=== PATIENT | female | born 2000 | race Two or more races ===

== ENCOUNTER 2020-05-02 22:26 | Emergency (ER) | payer OTHER ==
[~2020-05-02] VITALS: Ht 170.2 cm; Wt 59.0 kg
[2020-05-02] MEDS ORDERED: SUPER B-50 COM1 EACH (22:43)
[2020-05-03] MEDS ORDERED: AZITHROMYCIN250 MG PO (04:23)
[2020-05-03] MEDS ORDERED: ACETAMINOPHEN650 M2 PO (04:23)
== END 2020-05-03 05:42 | disposition home or self-care (01) ==
LOC: EMR PED 22:26 → ER 22:36 → EMR PED 22:36 → ER 05-03 05:42
DX: A90 Dengue fever [classical dengue] (principal); B96.0 Mycoplasma pneumoniae [M. pneumoniae] as the cause of diseases classified elsewhere; Z20.822 Contact with and (suspected) exposure to COVID-19

== ENCOUNTER 2020-05-06 18:43 | Emergency (ER) | payer OTHER ==
[~2020-05-06] VITALS: Ht 170.2 cm; Wt 61.2 kg
[~2020-05-06 18:43] MED LIST: ACETAMINOPHEN650 M2 PO; AZITHROMYCIN250 MG PO; SUPER B-50 COM1 EACH
[2020-05-07] MEDS ORDERED: PEPCID AC20 MG PO (10:50)
[2020-05-07] MEDS ORDERED: INTESTINEX680 M2 PO (10:50)
== END 2020-05-07 11:06 | disposition home or self-care (01) ==
LOC: ER 18:43 → EMR PED 18:44 → ER 18:44 → EMR PED 05-07 11:06
DX: A90 Dengue fever [classical dengue] (principal); B96.0 Mycoplasma pneumoniae [M. pneumoniae] as the cause of diseases classified elsewhere; Z03.818 Encounter for observation for suspected exposure to other biological agents ruled out

== ENCOUNTER 2020-05-08 08:22 | Inpatient (IN) | payer OTHER ==
[~2020-05-08] VITALS: Ht 170.2 cm; Wt 6123.0 kg
[~2020-05-08 08:22] MED LIST changes: +INTESTINEX680 M2 PO; +PEPCID AC20 MG PO
--- NOTE | 2020-05-08 08:39 | NUR ---
SE RECIBE PTE ALERTA Y ORIENTADA X3,REFIERE KATE ESTADO PREM EN LA NIKHIL DE ER,LA PEDIATRA LE REFIRIO RETORNAR A HACERSE UN CBC,REFIERE QUE HOY TUVO 3 EMESIS ,REFIERE QUE NO SE HAWKINS TOMADO LOS MEDICAMENTOS QUE LE RECETARON.
--- NOTE | 2020-05-08 09:16 | NUR ---
PTE EVALUADA POR LA DRA VELEZ QUIEN ORDENA EL [place]. SE ORIENTA SOBRE EL MISMO, LO CUAL PTE Y FAMILIAR REFIEREN ENTENDER. SE REALIZAN PRUEBAS DE LABORATORIO Y SE ADMINISTRAN MEDICAMENTOS EARLENE ORDEN MEDICA Y SIGUIENDO MEDIDAS ASEPTICAS. SE MANTIENE BAJO OBSERVACION.
== END 2020-05-11 11:11 | disposition home or self-care (01) | DRG 866 ==
LOC: EMR PED 08:22 → OB/GYN 10:52 → SEC-K 10:52 → OB/GYN 14:37
PROVIDERS: ADMIT Emergency Medicine Pediatric Emergency Medicine; ATTEND Emergency Medicine Pediatric Emergency Medicine
PROC: BW40ZZZ Ultrasonography of Abdomen (ICD-10-PCS; principal; 2020-05-09)
DX: A90 Dengue fever [classical dengue] (principal); D69.59 Other secondary thrombocytopenia; E86.0 Dehydration

== ENCOUNTER 2021-02-08 10:19 | Emergency (ER) | payer OTHER ==
[~2021-02-08] VITALS: Ht 170.2 cm; Wt 59.0 kg
== END 2021-02-08 14:07 | disposition home or self-care (01) ==
LOC: ER 10:19
DX: M62.838 Other muscle spasm (principal); M54.2 Cervicalgia; V43.62XA Car passenger injured in collision with other type car in traffic accident, initial encounter; Y93.89 Activity, other specified; Y92.413 State road as the place of occurrence of the external cause